=== PATIENT | female | born 1975 | race Caucasian/White ===

== ENCOUNTER 2018-08-27 23:46 | Emergency (ER) | payer BC, OTHER ==
[~2018-08-27] VITALS: Ht 165.1 cm; Wt 113.4 kg
[~2018-08-27 23:46] MED LIST: CYCL10TA2 PO; DOXY100C2 PO; NAPR-677 PO
--- NOTE | 2018-08-28 00:17 | PHYS DOC ---
Past Medical History Past Medical History: No Pertinent History Past Surgical History: Other Additional Past Surgical Histo: D&C Alcohol Use: Occasionally Drug Use: None Adult General Chief Complaint Chief Complaint: VISION PROBLEM HPI HPI Patient is a 43 year old female who presents with several complaints, generalized fatigue and malaise, a rash on her right chest, subjective fever. This is all been present for the past 2-3 days. No nausea, vomiting, or diarrhea. 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 [] Review of Systems Review of Systems Constitutional: Denies fever or chills [] Eyes: Denies eye redness, or eye pain [] HENT: Denies nasal congestion or sore throat [] Respiratory: Denies cough or shortness of breath [] Cardiovascular: No chest pain or palpitations[] GI: Denies abdominal pain, nausea, vomiting, bloody stools or diarrhea [] : Denies dysuria or hematuria [] Musculoskeletal: Denies back pain or joint pain [] Integument: See history of present illness[] Neurologic: Denies headache, focal weakness or sensory changes [] Endocrine: Denies polyuria or polydipsia [] All other systems were reviewed and found to be within normal limits, except as documented in this note. Current Medications Current Medications Current Medications Medications (Trade) Dose Ordered Sig/[place] Start Time Stop Time Status Last Admin Dose Admin Ibuprofen (Motrin) 600 mg 1X ONCE 08/28/18 00:30 08/28/18 00:31 DC 08/28/18 00:35 600 MG Allergies Allergies Allergies Coded Allergies Type Severity Reaction Last Updated Verified No Known Drug Allergies 02/04/16 No Physical Exam Physical Exam Constitutional: Well developed, well nourished, no acute distress, non-toxic appearance. [] HENT: Normocephalic, atraumatic, bilateral external ears normal, oropharynx moist, no oral exudates, nose normal. [] Eyes: PERRLA, EOMI, conjunctiva normal, no discharge. Visual acuity was 20/40 left eye and right eye without glasses, 20/30 both eyes, without glasses. No retinal changes noted [] Neck: Normal range of motion, no tenderness, supple, no stridor. [] Cardiovascular:Heart rate regular rhythm, no murmur [] Lungs & Thorax: Bilateral breath sounds clear to auscultation [] Abdomen: Bowel sounds normal, soft, no tenderness, no masses, no pulsatile masses. [] Skin: Warm, dry, is erythematous rash on her right chest, approximately the T7- 8 region that does not cross midline, erythematous base, papular. [] Back: No tenderness, no CVA tenderness. [] Extremities: No tenderness, no cyanosis, no clubbing, ROM intact, no edema. [] Neurologic: Alert and oriented X 3, normal motor function, normal sensory function, no focal deficits noted. [] Psychologic: Affect normal, judgement normal, mood normal. [] Current Patient Data Vital Signs Vital Signs Date Time Temp Pulse Resp B/P (MAP) Pulse Ox O2 Delivery O2 Flow Rate FiO2 08/27/18 23:53 98.1 84 20 188/98 (128) 99 Room Air 98.1 Lab Values Laboratory Tests Test 08/28/18 00:11 Influenza Type A Antigen Negative (NEGATIVE) Influenza Type B Antigen Negative (NEGATIVE) EKG EKG [] Radiology/Procedures Radiology/Procedures [] Course & Med Decision Making Course & Med Decision Making Pertinent Labs and Imaging studies reviewed. (See chart for details) Medical decision making: There is no evidence of visual acuity issues, flu is negative, believe this to be more of a viral syndrome along with shingles. Treating the patient for her shingles as well as symptomatic relief.[] Dragon Disclaimer Dragon Disclaimer This electronic medical record was generated, in whole or in part, using a voice recognition dictation system. Departure Departure Impression: Primary Impression: Shingles Additional Impression: Malaise and fatigue Disposition: 01 HOME, SELF-CARE Condition: GRAVE Referrals: NO PCP (PCP) Patient Instructions: Fatigue, Shingles Additional Instructions: Plan plenty of fluids. Follow-up with your regular doctor in 2 days. If you do not have regular doctor list of local clinics will be for provided for you. Return to the ER if worsening symptoms or any other concerns. Scripts Meloxicam (MELOXICAM) 7.5 Mg Tablet 7.5 MG PO DAILY, #20 TAB Prov: GUNNER MCCOLLUM DO 08/28/18 Acyclovir (ACYCLOVIR) 800 Mg Tablet 1 TAB PO 5XDAY, #50 TAB Prov: GUNNER MCCOLLUM DO 08/28/18 Problem Qualifiers Primary Impression: Shingles Herpes zoster complications: without complications Qualified Codes: B02.9 - Zoster without complications GUNNER MCCOLLUM DO Aug 28, 2018 00:17
[2018-08-28] MEDS ORDERED: IBUPROFEN 600 MG TABLET. PO ONE (00:30)
[2018-08-28 00:32] VITALS: BP 172/96
[2018-08-28 00:47] LABS: INFLUENZA A PATIENT NEGATIVE (NEGATIVE); INFLUENZA B PATIENT NEGATIVE (NEGATIVE)
[2018-08-28] MEDS ORDERED: MELO7.5T29 PO (01:21)
[2018-08-28] MEDS ORDERED: ACYC800T PO (01:21)
[2018-08-28] MEDS ORDERED: IV NORMAL SALINE 1000ML BAG 1,000 ML IV SCH (01:28)
[2018-08-28] MEDS ORDERED: PROCHLORPERAZINE 10 MG/2 ML VIAL. IV ONE (01:30)
[2018-08-28] MEDS ORDERED: KETOROLAC 30 MG/ML VIAL. IV ONE (01:30)
[2018-08-28] MEDS ORDERED: HYOSCYAMINE 0.125 MG TAB.RAPDIS PO ONE (01:30)
== END 2018-08-28 01:30 | disposition home or self-care (01) ==
LOC: ER 23:46
DX: R53.83 Other fatigue (principal); B02.9 Zoster without complications; R53.81 Other malaise; R21 Rash and other nonspecific skin eruption; R50.9 Fever, unspecified
CPT/HCPCS: 87804; 99283; 99284-25